=== PATIENT | male | born 1995 | race Caucasian/White ===

== ENCOUNTER 2020-03-15 19:41 | Inpatient (IN) | payer MEDICAID ==
[~2020-03-15] VITALS: Ht 172.7 cm; Wt 55.3 kg
[2020-03-15 23:18] LABS: BASOPHILS % (AUTO) 0.9 % (0.0-2.0); EOSINOPHILS % (AUTO) 2.2 % (1.0-6.0); HEMATOCRIT 42.5 % (41-53); HEMOGLOBIN 14.5 g/dL (13.5-17.5); LYMPHOCYTES # (AUTO) 2.4 K/uL (1.0-4.8); LYMPHOCYTES % (AUTO) 29.4 % (22.0-44.0); MEAN CORPUSCULAR HEMOGLOBIN 30.7 pg (26.0-34.0); MEAN CORPUSCULAR HGB CONC 34.1 G/dL (31.0-37.0); MEAN CORPUSCULAR VOLUME 90 fL (80-100); MONOCYTES % (AUTO) 12.6 % (2.0-9.0); NEUTROPHILS # (AUTO) 4.5 K/uL (1.8-7.7); NEUTROPHILS % (AUTO) 54.9 % (40.0-70.0); PLATELET COUNT (AUTO) 385 K/uL (150-450); RED BLOOD CELL COUNT(AUTO) 4.72 MIL/uL (4.50-5.90); RED CELL DISTRIBUTION WIDTH 13.2 % (11.5-14.5)
[2020-03-15 23:26] LABS: ANION GAP 7 mmol/L (8-16); CALCIUM, TOTAL 8.9 mg/dL (8.8-10.5); CARBON DIOXIDE 28 mmol/L (22-29); CHLORIDE 104 mmol/L (98-107); CREATININE 0.97 mg/dL (0.60-1.30); GLOMERULAR FILTR. RATE CALC > 60 mL/min (>60); GLUCOSE,RANDOM 95 mg/dL (70-110); POTASSIUM 3.9 mmol/L (3.5-5.1); SODIUM SERUM 139 mmol/L (136-145); UREA NITROGEN, BLOOD 13 mg/dL (7-18)
[2020-03-15] MEDS ORDERED: OLANZapine 5 MG RAPDIS TABLET PO PRN (23:30)
[2020-03-15] MEDS ORDERED: ZOLPIDEM TARTRATE 10 MG TABLET PO PRN (23:30)
[2020-03-15] MEDS ORDERED: LORazepam 2 MG TABLET PO PRN (23:30)
[2020-03-15 23:34] LABS: ALANINE AMINOTRANSFERASE 21 U/L (12-78); ALBUMIN 4.3 g/dL (3.4-5.0); ALKALINE PHOSPHATASE 124 U/L (46-116); ASPARTATE AMINOTRANSFERASE 12 U/L (15-37); BILIRUBIN,TOTAL 0.4 mg/dL (0.1-1.0)
[2020-03-16 01:32] LABS: AMPHET/METH SCREEN,URINE NEGATIVE (NEGATIVE); BARBITURATE SCREEN, URINE NEGATIVE (NEGATIVE); BENZODIAZEPINES SCREEN,URINE NEGATIVE (NEGATIVE); CANNABINOID SCREEN,URINE POSITIVE (NEGATIVE); COCAINE SCREEN,URINE NEGATIVE (NEGATIVE); METHADONE SCREEN, URINE NEGATIVE (NEGATIVE); OPIATE SCREEN,URINE NEGATIVE (NEGATIVE); PHENCYCLIDINE SCREEN,URINE NEGATIVE (NEGATIVE)
[2020-03-16 02:03] VITALS: BP 125/84
[2020-03-16 02:10] VITALS: BP 125/84
[2020-03-16] MEDS ORDERED: DOCUSATE SODIUM 100 MG CAPSULE PO PRN (07:00)
[2020-03-16] MEDS ORDERED: ONDANSETRON HCL 4 MG TABLET PO PRN (07:00)
[2020-03-16] MEDS ORDERED: ACETAMINOPHEN 325 MG TABLET PO PRN (07:00)
[2020-03-16] MEDS ORDERED: IBUPROFEN 400 MG TABLET PO PRN (07:00)
[2020-03-16] MEDS ORDERED: LOPERAMIDE HCL 2 MG CAPSULE PO PRN (07:00)
[2020-03-16] MEDS ORDERED: NICOTINE 14 MG/24 HOUR PATCH TD PRN (07:00)
[2020-03-16] MEDS ORDERED: MAGNESIUM HYDROXIDE SUSPENSION 30 ML UDCUP PO PRN (07:00)
[2020-03-16] MEDS ORDERED: ALBUTEROL SULFATE HFA 90 MCG/PUFF 8 GM INHALER IH PRN (07:00)
[2020-03-16] MEDS ORDERED: PETROLATUM,WHITE 28 GM JELLY TP PRN (07:00)
[2020-03-16] MEDS ORDERED: GuaiFENesin/D-METHORPHAN [SUGAR-FREE] 200-20MG/10 ML SYRUP UDCUP PO PRN (07:00)
[2020-03-16] MEDS ORDERED: MAG HYDROX/AL HYDROX/SIMETH ES 30 ML SUSPENSION UDCUP PO PRN (07:00)
[2020-03-16] MEDS ORDERED: CloNIDine HCL 0.1 MG TABLET PO PRN (07:00)
[2020-03-16 08:02] VITALS: BP 110/67
[2020-03-16] MEDS: BuPROPion HCL XL 150 MG ER TABLET PO SCH (13:14)
[2020-03-16 16:31] VITALS: BP 105/67
[2020-03-17 00:27] VITALS: BP 102/68
[2020-03-17] MEDS: BuPROPion HCL XL 150 MG ER TABLET PO SCH (08:35)
[2020-03-17 08:58] LABS: CHOL/HDL RATIO 3.4 (4.2-7.3)
[2020-03-17 09:12] VITALS: BP 116/72
[2020-03-17 16:26] VITALS: BP 121/76
[2020-03-18 04:00] VITALS: BP 108/59
[2020-03-18] MEDS: BuPROPion HCL XL 150 MG ER TABLET PO SCH (08:42)
[2020-03-18 08:46] VITALS: BP 109/69
[2020-03-18] MEDS ORDERED: BUPR-47 PO (11:20)
[2020-03-18 16:21] VITALS: BP 128/88
== END 2020-03-18 17:11 | disposition home or self-care (01) | DRG 885 ==
LOC: EMS 19:43 → B2S 23:26
PROVIDERS: ADMIT Psychiatry & Neurology Child & Adolescent Psychiatry; ATTEND Psychiatry & Neurology Child & Adolescent Psychiatry
DX: F33.2 Major depressive disorder, recurrent severe without psychotic features (principal); R45.851 Suicidal ideations; K59.00 Constipation, unspecified; F41.9 Anxiety disorder, unspecified; G44.209 Tension-type headache, unspecified, not intractable; Z56.0 Unemployment, unspecified; Z79.899 Other long term (current) drug therapy; Z87.891 Personal history of nicotine dependence
CPT/HCPCS: G0480

== ENCOUNTER 2025-04-17 16:39 | Emergency (ER) | payer MEDICAID, OTHER ==
[~2025-04-17] VITALS: Ht 170.2 cm; Wt 68.2 kg
[~2025-04-17 16:39] MED LIST: BUPR-49 PO
[2025-04-17 16:46] VITALS: TEMP 98.6
[2025-04-17 17:32] LABS: PLATELET COUNT (AUTO) 411 K/uL (150-450); RED BLOOD CELL COUNT(AUTO) 4.82 MIL/uL (4.50-5.90); RED CELL DISTRIBUTION WIDTH 13.8 % (11.5-14.5); WHITE BLOOD COUNT (AUTO) 11.8 K/uL (4.5-11.0)
[2025-04-17 17:41] LABS: CALCIUM, TOTAL 8.4 mg/dL (8.8-10.5); CREATININE 0.79 mg/dL (0.60-1.30); GLOMERULAR FILTR. RATE CALC > 60 mL/min (>60); GLUCOSE,RANDOM 127 mg/dL (70-110); SODIUM SERUM 140 mmol/L (136-145); UREA NITROGEN, BLOOD 8 mg/dL (7-18)
[2025-04-17 18:45] LABS: APPEARANCE,URINE CLEAR (CLEAR); GLUCOSE, URINE (UA) NEGATIVE (NEGATIVE); LEUKOCYTE ESTERASE ,URINE NEGATIVE (NEGATIVE); NITRATE,URINE NEGATIVE (NEGATIVE); OCCULT BLOOD,URINE NEGATIVE (NEGATIVE); SPECIFIC GRAVITIY, URINE 1.018 (1.003-1.030)
[2025-04-17 21:08] VITALS: BP 121/77; PULSE 78; RESP 15; O2SAT 100
[2025-04-17] MEDS ORDERED: POLY17PO62 PO (22:19)
== END 2025-04-17 22:27 | disposition home or self-care (01) ==
LOC: EMS 16:39
DX: K59.00 Constipation, unspecified (principal); R10.31 Right lower quadrant pain; F17.210 Nicotine dependence, cigarettes, uncomplicated; F12.90 Cannabis use, unspecified, uncomplicated; F15.90 Other stimulant use, unspecified, uncomplicated; F32.A Depression, unspecified; Z79.899 Other long term (current) drug therapy
CPT/HCPCS: 74018; 74176; 80048; 81003; 85025; 99284; 36415-L1; 36415-TC